=== PATIENT | female | born 1970 ===

== ENCOUNTER 2017-02-08 09:48 | Emergency (ER) | payer OTHER ==
[2017-02-08 09:56] VITALS: PULSE 84; TEMP 98.1
[2017-02-08] MEDS ORDERED: Sodium Chloride 0.9% 1,000 ML IV STA (10:14)
--- NOTE | 2017-02-08 10:31 | ED PDOC ---
HPI: Psych/Substance Abuse Time Seen by Provider: 02/08/17 10:05 Chief Complaint (Nursing): Psychiatric Evaluation Chief Complaint (Provider): anxious History Per: Patient History/Exam Limitations: no limitations Onset/Duration Of Symptoms: Days (x 10) Current Symptoms Are (Timing): Still Present Associated Symptoms: Anxiety Additional Complaint(s): Tesha Sutton is a 46 year old female, with no previous medical history, who presents to the ED with complaints of increased anxiety associated with decreased appetite, inability to sleep, sweaty hands and upper back pain which developed 10 days ago secondary to loosing her mother. Patient reports experiencing mild shortness of breath last night which have since resolved. She denies any chest pain, nausea, vomiting, abdominal pain, headache, suicidal ideation, homicidal ideation, fever, chills or coughing. She reports drinking wine to help her sleep last night with no help. No long distance travel, calf pain. PMD: none provided Past Medical History Reviewed: Historical Data, Nursing Documentation, Vital Signs Vital Signs: Last Vital Signs Temp 98.1 F 02/08/17 09:55 Pulse 84 02/08/17 09:55 Resp 20 02/08/17 09:55 BP 143/86 02/08/17 09:55 Pulse Ox 97 02/08/17 09:55 - Medical History PMH: No Chronic Diseases - Surgical History Surgical History: No Surg Hx - Family History Family History: States: Unknown Family Hx - Living Arrangements Living Arrangements: With Family - Social History Current smoker - smoking cessation education provided: No Alcohol: None Drugs: Denies - Allergies Allergies/Adverse Reactions: Allergies Allergy/AdvReac Type Severity Reaction Status Date / Time No Known Allergies Allergy Verified 02/08/17 10:05 Review of Systems ROS Statement: Except As Marked, All Systems Reviewed And Found Negative Constitutional: Negative for: Fever, Chills Cardiovascular: Negative for: Chest Pain Respiratory: Negative for: Shortness of Breath (resolved) Gastrointestinal: Negative for: Nausea, Vomiting, Abdominal Pain, Diarrhea Musculoskeletal: Positive for: Back Pain (upper) Neurological: Negative for: Headache Psych: Positive for: Anxiety, Other (decreased appetitie and inability to sleep ). Negative for: Suicidal ideation (or homicidal ideation ) Physical Exam - Reviewed Nursing Documentation Reviewed: Yes Vital Signs Reviewed: Yes - Physical Exam Appears: Positive for: Non-toxic, No Acute Distress Head Exam: Positive for: ATRAUMATIC, NORMAL INSPECTION, NORMOCEPHALIC Skin: Positive for: Normal Color, Warm, DRY Eye Exam: Positive for: EOMI, Normal appearance, PERRL ENT: Positive for: Normal ENT Inspection Neck: Positive for: Normal, Painless ROM, Supple Cardiovascular/Chest: Positive for: Regular Rate, Rhythm, Chest Non Tender. Negative for: Edema Respiratory: Positive for: CNT, Normal Breath Sounds Gastrointestinal/Abdominal: Positive for: Normal Exam, Bowel Sounds, Soft. Negative for: Tenderness Back: Positive for: Normal Inspection. Negative for: L CVA Tenderness, R CVA Tenderness, Decreased ROM, Muscle Spasm Extremity: Positive for: Normal ROM. Negative for: Tenderness, Pedal Edema Neurologic/Psych: Positive for: Alert, Oriented - Laboratory Results Result Diagrams: 02/08/17 10:38 02/08/17 10:38 Interpretation Of Abn Labs: no acute - ECG O2 Sat by Pulse Oximetry: 97 (RA) Pulse Ox Interpretation: Normal - Progress ED Course And Treament: 1149: Stable. AAOx3. Pain free. Tolerated PO. Ambulated with no issues. Crisis saw pt. Does not meet criteria for admit. Fu outpt. Medical Decision Making Medical Decision Making: Initial Impression: Crisis evaluation Initial Plan: * labs * alcohol serum * crisis evaluation * urine * IV NS 1,000 ml at 1,000 ml/hr * reevaluation Scribe Attestation: Documented by Mary Carmen Peraza, acting as a scribe for Darell Reed MD. Provider Scribe Attestation: All medical record entries made by the Scribe were at my direction and personally dictated by me. I have reviewed the chart and agree that the record accurately reflects my personal performance of the history, physical exam, medical decision making, and the department course for this patient. I have also personally directed, reviewed, and agree with the discharge instructions and disposition. Disposition - Clinical Impression Clinical Impression: Adjustment disorder - Patient ED Disposition Is Patient to be Admitted: No Counseled Patient/Family Regarding: Studies Performed, Diagnosis, Need For Followup - Disposition Referrals: [facility] [Outside] - 02/11/17 Disposition: Routine/Home Disposition Time: 11:50 Condition: STABLE Additional Instructions: Return if not better in 3 days. Instructions: Grief and Loss (ED) Print Language: TURKISH
[2017-02-08 10:42] LABS: BASO % 0.4 % (0.0-2.0); EOS # 0.1 K/uL (0.0-0.7); EOS % 1.5 % (0.0-4.0); HEMOGLOBIN 13.4 g/dL (12.0-16.0); LYMPH # 1.1 K/uL (1.0-4.3); LYMPH % 19.8 % (20.0-40.0); MEAN CELL VOLUME 99.8 fl (81.0-99.0); MEAN CORPUSCULAR HEMOGLOBIN 33.1 pg (27.0-31.0); MEAN CORPUSCULAR HGB CONC 33.2 g/dL (33.0-37.0); MEAN PLATELET VOLUME 8.2 fl (7.2-11.7); MONO # 0.5 K/uL (0.0-0.8); NEUT # 3.7 K/uL (1.8-7.0); NEUT % 69.3 % (50.0-75.0); RBC 4.03 Mil/uL (3.80-5.20); RED CELL DISTRIBUTION WIDTH 13.1 % (11.5-14.5); WHITE BLOOD COUNT 5.4 K/uL (4.8-10.8)
[2017-02-08 10:59] LABS: ALB/GLOB RATIO 1.5 (1.0-2.1); ALBUMIN 4.1 g/dL (3.5-5.0); ALT/SGPT 34 U/L (9-52); AST/SGOT 24 U/L (14-36); BLOOD UREA NITROGEN 7 mg/dl (7-17); CALCIUM 8.5 mg/dL (8.4-10.2); GFR AFRICAN-AMERICAN > 60; GFR NON-AFRICAN AMERICAN > 60
[2017-02-08 12:16] VITALS: BP 116/70; RESP 18; O2SAT 99
== END 2017-02-08 12:16 | disposition home or self-care (01) ==
LOC: H.ER 09:48
DX: F43.20 Adjustment disorder, unspecified (principal)